=== PATIENT | female | born 1950 | race Two or more races ===

== ENCOUNTER 2019-12-27 10:48 | Outpatient (CLI) | payer OTHER | END 2019-12-27 10:57 | disposition home or self-care (01) | LOC: RAD 10:48 → EDBD 10:48 → RAD 10:57 | PROVIDERS: ATTEND Orthopaedic Surgery | DX: M25.561 Pain in right knee (principal); M25.562 Pain in left knee ==

== ENCOUNTER 2019-12-28 11:52 | Outpatient (CLI) | payer OTHER | END 2019-12-28 12:13 | disposition home or self-care (01) | LOC: EDBD 11:52 → MRI 11:52 | PROVIDERS: ATTEND Orthopaedic Surgery | DX: M71.21 Synovial cyst of popliteal space [Baker], right knee (principal); M23.331 Other meniscus derangements, other medial meniscus, right knee; M25.561 Pain in right knee | CPT/HCPCS: 73721 ==